=== PATIENT | female | born 1995 | race African-American/Black ===

== ENCOUNTER 2018-02-01 14:57 | Emergency (ER) | payer MEDICAID, OTHER ==
[~2018-02-01] VITALS: Ht 165.1 cm; Wt 66.0 kg
[2018-02-01 18:47] LABS: CLARITY URINE CLEAR (CLEAR); COLOR URINE DARK YELLOW (YELLOW); KETONES URINE NEGATIVE (NEGATIVE); LEUKOCYTE ESTERASE URINE NEGATIVE (NEGATIVE); NITRITE URINE NEGATIVE (NEGATIVE); OCCULT BLOOD URINE NEGATIVE (NEGATIVE); PH URINE 7.5 (4.5-8.0); PROTEIN URINE 2+ (NEGATIVE); SPECIFIC GRAVITY URINE 1.028 (1.005-1.030)
[2018-02-01] MEDS ORDERED: ACETAMINOPHEN 325MG TABLET PO STA (22:28)
[2018-02-01] MEDS ORDERED: SODIUM CHLORIDE 0.9% 1,000 ML IV ONE (22:28)
[2018-02-01] MEDS ORDERED: ONDANSETRON HCL 4MG/2ML VIAL IV ONE (22:30)
[2018-02-01 23:50] LABS: BASOPHILS % 0.3 % (0.0-2.0); EOSINOPHILS % 0.7 % (0.0-5.0); HEMATOCRIT. 35.9 % (36.0-48.0); HEMOGLOBIN. 12.2 g/dL (12.0-16.0); MEAN CORPUSCULAR HEMOGLOBIN 28.5 pg (28.0-32.0); MEAN PLATELET VOLUME 8.8 fl (7.4-10.4); MONOCYTES % 13.4 % (2.0-8.0); NEUTROPHILS % 61.6 % (40.0-76.0); PLATELET 114 x1000/uL (130-400); RED BLOOD CELL COUNT 4.27 mill/uL (4.2-5.4); RED CELL DISTRIBUTION WIDTH 14.8 % (11.6-14.6)
[2018-02-01 23:56] LABS: INR 1.1; PROTHROMBIN TIME 10.7 sec (9.1-11.1)
[2018-02-01 23:59] LABS: CHLORIDE 103 mEq/L (98-107)
[2018-02-02] MEDS ORDERED: ONDANSETRON HCL 4MG/2ML VIAL IV ONE (00:15)
[2018-02-02 02:29] VITALS: BP 123/78
== END 2018-02-02 02:36 | disposition home or self-care (01) ==
LOC: ER 16:23
DX: R10.33 Periumbilical pain (principal); R19.7 Diarrhea, unspecified; M54.5 Low back pain
CPT/HCPCS: 36415; 74176; 80053; 81003; 81025; 83690; 85025; 85610; 96361; 96374; 96376; 99285; J2405; J7030; Z7610

== ENCOUNTER 2020-07-05 12:42 | Emergency (ER) | payer MEDICAID ==
[~2020-07-05] VITALS: Ht 167.6 cm; Wt 77.0 kg
[2020-07-05] MEDS ORDERED: PREN-170 PO (12:54)
[2020-07-05] MEDS ORDERED: LOV40 SQ (12:54)
[2020-07-05 13:46] LABS: BASOPHILS % 0.3 % (0.0-2.0); EOSINOPHILS % 2.5 % (0.0-5.0); HEMATOCRIT. 31.2 % (36.0-48.0); HEMOGLOBIN. 10.6 g/dL (12.0-16.0); MEAN CORPUSCULAR HEMOGLOBIN 29.3 pg (28.0-32.0); MEAN CORPUSCULAR VOLUME 86.1 fL (81.0-99.0); MEAN PLATELET VOLUME 8.2 fl (7.4-10.4); MONOCYTES % 13.4 % (2.0-8.0); NEUTROPHILS % 57.8 % (40.0-76.0); PLATELET 195 x1000/uL (130-400); RED BLOOD CELL COUNT 3.62 mill/uL (4.2-5.4); RED CELL DISTRIBUTION WIDTH 15.5 % (11.6-14.6)
[2020-07-05 13:53] LABS: CHLORIDE 107 mEq/L (98-107)
[2020-07-05 13:54] LABS: INR 0.9; PROTHROMBIN TIME 9.9 sec (9.6-11.0)
[2020-07-05 13:56] LABS: CLARITY URINE CLOUDY (CLEAR); COLOR URINE YELLOW (YELLOW); KETONES URINE NEGATIVE (NEGATIVE); LEUKOCYTE ESTERASE URINE 2+ (NEGATIVE); NITRITE URINE NEGATIVE (NEGATIVE); OCCULT BLOOD URINE NEGATIVE (NEGATIVE); PH URINE 8.5 (4.5-8.0); PROTEIN URINE 1+ (NEGATIVE); SPECIFIC GRAVITY URINE 1.017 (1.005-1.030); UROBILINOGEN URINE 0.2 E.U./dL (0.2-1.0)
[2020-07-05 14:17] LABS: B-HCG QUANTITATIVE 7683 mIU/mL (<3)
[2020-07-05 14:30] VITALS: BP 112/65
== END 2020-07-05 14:30 | disposition home or self-care (01) ==
LOC: ER 12:48
DX: O9A.212 Injury, poisoning and certain other consequences of external causes complicating pregnancy, second trimester (principal); O23.42 Unspecified infection of urinary tract in pregnancy, second trimester; O99.512 Diseases of the respiratory system complicating pregnancy, second trimester; J45.909 Unspecified asthma, uncomplicated; O26.892 Other specified pregnancy related conditions, second trimester; Z79.899 Other long term (current) drug therapy; Z3A.18 18 weeks gestation of pregnancy; W01.0XXA Fall on same level from slipping, tripping and stumbling without subsequent striking against object, initial encounter; Y93.89 Activity, other specified; Y92.89 Other specified places as the place of occurrence of the external cause; Y99.8 Other external cause status
CPT/HCPCS: 36415; 76805; 80053; 81003; 81025; 84702; 85025; 93005; 99284

== ENCOUNTER 2020-10-04 10:41 | Observation (INO) | payer MEDICAID ==
[~2020-10-04] VITALS: Ht 170.2 cm; Wt 82.6 kg
[~2020-10-04 10:41] MED LIST: LOV40 SQ; PREN-170 PO
[2020-10-04] MEDS ORDERED: RHO(D) IMMUNE GLOBULIN 300 MCG/SYR IM ONE (11:00)
== END 2020-10-04 13:00 | disposition home or self-care (01) ==
LOC: 8 EST LDRP 10:41
PROVIDERS: ADMIT Obstetrics & Gynecology; ATTEND Obstetrics & Gynecology
DX: O26.893 Other specified pregnancy related conditions, third trimester (principal); Z67.41 Type O blood, Rh negative; Z3A.35 35 weeks gestation of pregnancy
CPT/HCPCS: 36415; 59025; 86850; 86900; 86901; 90384; 96372; G0378; 99281

== ENCOUNTER 2020-11-29 10:45 | Observation (INO) | payer MEDICAID ==
[~2020-11-29] VITALS: Ht 170.2 cm; Wt 87.1 kg
[2020-11-29] MEDS ORDERED: LACTATED RINGERS 1,000 ML IV SCH (12:00)
[2020-11-29 12:39] LABS: BASOPHILS % 0.3 % (0.0-2.0); EOSINOPHILS % 0.9 % (0.0-5.0); HEMATOCRIT. 23.9 % (36.0-48.0); LYMPHOCYTES % 19.3 % (20.0-50.0); MEAN CORPUSCULAR HEMOGLOBIN 24.8 pg (28.0-32.0); MEAN CORPUSCULAR VOLUME 73.9 fL (81.0-99.0); MEAN PLATELET VOLUME 10.1 fl (7.4-10.4); MONOCYTES % 9.1 % (2.0-8.0); NEUTROPHILS % 70.4 % (40.0-76.0); PLATELET 174 x1000/uL (130-400); RED BLOOD CELL COUNT 3.24 mill/uL (4.2-5.4); RED CELL DISTRIBUTION WIDTH 19.6 % (11.6-14.6)
[2020-11-29 12:42] LABS: CHLORIDE 111 mEq/L (98-107)
[2020-11-29 12:43] LABS: CLARITY URINE CLOUDY (CLEAR); COLOR URINE YELLOW (YELLOW); KETONES URINE TRACE (NEGATIVE); LEUKOCYTE ESTERASE URINE 2+ (NEGATIVE); NITRITE URINE NEGATIVE (NEGATIVE); OCCULT BLOOD URINE NEGATIVE (NEGATIVE); PROTEIN URINE 1+ (NEGATIVE); SPECIFIC GRAVITY URINE 1.018 (1.005-1.030)
== END 2020-11-29 14:43 | disposition home or self-care (01) ==
LOC: 8 EST LDRP 10:45
PROVIDERS: ADMIT Obstetrics & Gynecology; ATTEND Obstetrics & Gynecology
DX: O26.893 Other specified pregnancy related conditions, third trimester (principal); R10.9 Unspecified abdominal pain; R19.7 Diarrhea, unspecified; Z20.822 Contact with and (suspected) exposure to COVID-19; O99.891 Other specified diseases and conditions complicating pregnancy; M54.5 Low back pain; O36.8190 Decreased fetal movements, unspecified trimester, not applicable or unspecified; Z3A.38 38 weeks gestation of pregnancy
CPT/HCPCS: 36415; 59025; 76805; 76818; 80053; 81003; 85025; 87086; 96360; 96361; G0378; U0003; U0005; J7120

== ENCOUNTER 2020-12-01 07:10 | Inpatient (IN) | payer MEDICAID ==
[~2020-12-01] VITALS: Ht 167.6 cm; Wt 90.7 kg
[2020-12-01] MEDS ORDERED: BUTORPHANOL TARTRATE 2 MG/ML VIAL IV PRN (07:30)
[2020-12-01] MEDS ORDERED: METHYLERGONOVINE MALEATE 0.2 MG/ML IM PRN (07:30)
[2020-12-01] MEDS ORDERED: MISOPROSTOL 100MCG TABLET VG PRN (07:30)
[2020-12-01] MEDS ORDERED: NALOXONE HCL 0.4 MG/ML 1ML VIAL IM PRN (07:30)
[2020-12-01] MEDS ORDERED: DEXT 5%/LACTATED RINGERS 1,000 ML IV SCH ×2 (07:30→16:00)
[2020-12-01] MEDS ORDERED: CARBOPROST TROMETHAMINE 250 MCG/ML AMPUL IM PRN (07:30)
[2020-12-01 08:08] LABS: BASOPHILS % 0.2 % (0.0-2.0); EOSINOPHILS % 1.7 % (0.0-5.0); HEMATOCRIT. 25.7 % (36.0-48.0); HEMOGLOBIN. 8.4 g/dL (12.0-16.0); LYMPHOCYTES % 22.1 % (20.0-50.0); MEAN CORPUSCULAR HEMOGLOBIN 24.1 pg (28.0-32.0); MEAN CORPUSCULAR VOLUME 73.6 fL (81.0-99.0); MEAN PLATELET VOLUME 10.3 fl (7.4-10.4); MONOCYTES % 12.2 % (2.0-8.0); NEUTROPHILS % 63.8 % (40.0-76.0); PLATELET 206 x1000/uL (130-400); RED BLOOD CELL COUNT 3.49 mill/uL (4.2-5.4); RED CELL DISTRIBUTION WIDTH 19.4 % (11.6-14.6)
[2020-12-01 08:21] LABS: INR 0.9; PARTIAL THROMBOPLASTIN TIME 30.5 sec (23.4-31.0)
[2020-12-01 08:26] LABS: CLARITY URINE CLOUDY (CLEAR); COLOR URINE YELLOW (YELLOW); KETONES URINE NEGATIVE (NEGATIVE); LEUKOCYTE ESTERASE URINE TRACE (NEGATIVE); NITRITE URINE NEGATIVE (NEGATIVE); OCCULT BLOOD URINE NEGATIVE (NEGATIVE); PH URINE 6.5 (4.5-8.0); PROTEIN URINE 1+ (NEGATIVE); UROBILINOGEN URINE 0.2 E.U./dL (0.2-1.0)
[2020-12-01 09:14] LABS: *AMPHETAMINES SCREEN URINE NEGATIVE (NEGATIVE); *BARBITURATES SCREEN URINE NEGATIVE (NEGATIVE); *BENZODIAZEPINES SCREEN URINE NEGATIVE (NEGATIVE)
[2020-12-01 09:15] LABS: *COCAINE SCREEN URINE NEGATIVE (NEGATIVE); CANNABINOID URINE SCREEN NEGATIVE (NEGATIVE); METHADONE URINE SCREEN NEGATIVE (NEGATIVE); OPIATES URINE SCREEN NEGATIVE (NEGATIVE); PHENCYCLIDINE URINE SCREEN NEGATIVE (NEGATIVE)
[2020-12-01] MEDS: LACTATED RINGERS 1,000 ML IV SCH ×2 (10:46→10:56)
[2020-12-01] MEDS ORDERED: LACTATED RINGERS 1,000 ML IV SCH (12:30)
[2020-12-01 13:12] LABS: HEPATITIS B SURFACE ANTIGEN NEGATIVE
[2020-12-01] MEDS ORDERED: FENTANYL CITRATE/PF 50MCG/ML 2ML VIAL ONE (15:18)
[2020-12-01] MEDS ORDERED: MORPHINE SULFATE/PF 1MG/ML 10ML AMP ONE (15:19)
[2020-12-01] MEDS ORDERED: OXYTOCIN 10 UNITS/ML 1ML ONE (15:59)
[2020-12-01] MEDS ORDERED: LANOLIN OINT 7GM TUBE TOP PRN (16:00)
[2020-12-01] MEDS ORDERED: CEFAZOLIN SODIUM 1000MG/VIAL ONE (16:00)
[2020-12-01] MEDS ORDERED: LABETALOL 5MG/ML SYR 20 MG/4 ML SYRINGE IV PRN (16:00)
[2020-12-01] MEDS ORDERED: HYDROCODONE/ACETAMINOPHEN 5/325MG TABLET PO PRN (16:00)
[2020-12-01] MEDS ORDERED: EPHEDRINE SULFATE 50MG/ML VIAL ONE (16:00)
[2020-12-01] MEDS ORDERED: SODIUM CHLORIDE 0.9% 10ML VIAL ONE (16:00)
[2020-12-01] MEDS ORDERED: BUTORPHANOL TARTRATE 2 MG/ML VIAL IM PRN (16:00)
[2020-12-01] MEDS ORDERED: HEMORRHOIDAL SUPP PR PRN (16:00)
[2020-12-01] MEDS ORDERED: MEPERIDINE HCL/PF 25MG/ML CPJ IV PRN (16:00)
[2020-12-01] MEDS ORDERED: IBUPROFEN 400MG TABLET PO PRN (16:00)
[2020-12-01] MEDS ORDERED: DIPHENHYDRAMINE 50MG/ML VIAL IV PRN (16:00)
[2020-12-01] MEDS ORDERED: ONDANSETRON HCL 4MG/2ML INJ IV PRN (16:00)
[2020-12-01] MEDS ORDERED: RHO(D) IMMUNE GLOBULIN 300 MCG/SYR IM PRN (16:00)
[2020-12-01] MEDS ORDERED: KETOROLAC 30MG/ML VIAL IV PRN (16:00)
[2020-12-01] MEDS ORDERED: HYDROMORPHONE HCL/PF 2MG/ML CPJ IV PRN (16:00)
[2020-12-01] MEDS ORDERED: DEXT 5%/LR + PITOCIN 20UNITS/L 1,000 ML IV SCH (17:00)
[2020-12-01] MEDS: DEXT 5%/LR + PITOCIN 20UNITS/L 1,000 ML IV SCH ×2 (17:07→23:25)
[2020-12-01 18:20] VITALS: BP 118/75
[2020-12-01 20:20] VITALS: BP 108/68
[2020-12-01 21:00] VITALS: BP 114/68
[2020-12-01 23:30] VITALS: BP 124/73
[2020-12-02] MEDS ORDERED: KETOROLAC 30MG/ML VIAL IV PRN (00:30)
[2020-12-02] MEDS ORDERED: ONDANSETRON HCL 4MG/2ML INJ IV PRN (00:30)
[2020-12-02 03:45] VITALS: BP 105/61
[2020-12-02 06:40] LABS: BASOPHILS % 0.3 % (0.0-2.0); EOSINOPHILS % 1.2 % (0.0-5.0); HEMATOCRIT. 24.4 % (36.0-48.0); HEMOGLOBIN. 7.9 g/dL (12.0-16.0); LYMPHOCYTES % 17.8 % (20.0-50.0); MEAN CORPUSCULAR HEMOGLOBIN 24.1 pg (28.0-32.0); MEAN CORPUSCULAR VOLUME 74.8 fL (81.0-99.0); MEAN PLATELET VOLUME 11.2 fl (7.4-10.4); MONOCYTES % 12.3 % (2.0-8.0); NEUTROPHILS % 68.4 % (40.0-76.0); PLATELET 167 x1000/uL (130-400); RED BLOOD CELL COUNT 3.26 mill/uL (4.2-5.4); RED CELL DISTRIBUTION WIDTH 19.5 % (11.6-14.6)
[2020-12-02 08:00] VITALS: BP 118/57
[2020-12-02] MEDS: FERROUS SULFATE 325MG TABLET PO SCH ×2 (08:29→14:57)
[2020-12-02] MEDS: IBUPROFEN 800MG TABLET PO PRN ×3 (08:30→21:09)
[2020-12-02] MEDS: SIMETHICONE 80MG TABLET CHEW PO SCH ×2 (08:30→21:10)
[2020-12-02] MEDS: PRENATAL VIT/FE FUMARATE/FA TABLET PO SCH (14:57)
[2020-12-02 16:24] VITALS: BP 108/63
[2020-12-02 17:48] LABS: CHLORIDE 109 mEq/L (98-107)
[2020-12-02 20:32] LABS: INR 0.9; PARTIAL THROMBOPLASTIN TIME 30.7 sec (23.4-31.0); PROTHROMBIN TIME 9.8 sec (9.6-11.0)
[2020-12-02 20:40] VITALS: BP 128/71
[2020-12-02] MEDS: MAGNESIUM/ALUMINUM HYDROXIDE/SIMETHICONE 30ML UDC PO SCH (21:10)
[2020-12-02] MEDS: ENOXAPARIN 30MG/0.3ML SYR SUBCUT SCH (21:15)
[2020-12-03] MEDS: IBUPROFEN 800MG TABLET PO PRN ×3 (05:35→22:26)
[2020-12-03 05:40] VITALS: BP 111/78
[2020-12-03 08:00] VITALS: BP 113/66
[2020-12-03] MEDS: PRENATAL VIT/FE FUMARATE/FA TABLET PO SCH (08:54)
[2020-12-03] MEDS: MAGNESIUM/ALUMINUM HYDROXIDE/SIMETHICONE 30ML UDC PO SCH ×3 (08:54→21:07)
[2020-12-03] MEDS: SIMETHICONE 80MG TABLET CHEW PO SCH ×3 (08:54→21:07)
[2020-12-03] MEDS: FERROUS SULFATE 325MG TABLET PO SCH ×2 (08:54→13:23)
[2020-12-03] MEDS: ENOXAPARIN 30MG/0.3ML SYR SUBCUT SCH ×2 (08:54→21:08)
[2020-12-03] MEDS ORDERED: BISACODYL 10MG SUPP PR PRN ×2 (13:15→14:30)
[2020-12-03 16:00] VITALS: BP 123/84
[2020-12-03 19:30] VITALS: BP 128/79
[2020-12-04 04:00] VITALS: BP 119/73
[2020-12-04] MEDS ORDERED: FERR325T23 PO (05:16)
[2020-12-04] MEDS ORDERED: IBUP-2030 PO (05:16)
[2020-12-04] MEDS ORDERED: LOV30 SUBCUT (05:16)
[2020-12-04] MEDS: IBUPROFEN 800MG TABLET PO PRN (06:30)
[2020-12-04 07:30] VITALS: BP 126/73
[2020-12-04] MEDS: MAGNESIUM/ALUMINUM HYDROXIDE/SIMETHICONE 30ML UDC PO SCH (08:51)
[2020-12-04] MEDS: FERROUS SULFATE 325MG TABLET PO SCH (08:51)
[2020-12-04] MEDS: PRENATAL VIT/FE FUMARATE/FA TABLET PO SCH (08:51)
[2020-12-04] MEDS: SIMETHICONE 80MG TABLET CHEW PO SCH (08:52)
[2020-12-04] MEDS: ENOXAPARIN 30MG/0.3ML SYR SUBCUT SCH (08:55)
== END 2020-12-04 10:30 | disposition home or self-care (01) | DRG 540 ==
LOC: 8 EST LDRP 07:10 → 8EST 18:23
PROVIDERS: ADMIT Obstetrics & Gynecology; ATTEND Obstetrics & Gynecology
PROC: 10D00Z1 Extraction of Products of Conception, Low, Open Approach (ICD-10-PCS; principal; 2020-12-01)
DX: O32.1XX0 Maternal care for breech presentation, not applicable or unspecified (principal); D64.9 Anemia, unspecified; O26.893 Other specified pregnancy related conditions, third trimester; F32.9 Major depressive disorder, single episode, unspecified; O99.344 Other mental disorders complicating childbirth; O90.81 Anemia of the puerperium; Z37.0 Single live birth; Z3A.39 39 weeks gestation of pregnancy; Z67.41 Type O blood, Rh negative; Z86.711 Personal history of pulmonary embolism
CPT/HCPCS: 36415; 76815; 80048; 80305; 81003; 85025; 86592; 86703; 86762; 86850; 86900; 87340; 88307; J0690; J1200; J1650; J2274; J2590; J3010; J3490; J7120; J7121; A4315

== ENCOUNTER 2020-12-07 04:50 | Emergency (ER) | payer MEDICAID ==
[~2020-12-07] VITALS: Ht 170.2 cm; Wt 91.0 kg
[~2020-12-07 04:50] MED LIST changes: +FERR325T23 PO; +IBUP-2030 PO; +LOV30 SUBCUT; -PREN-170 PO
[2020-12-07 06:38] LABS: BASOPHILS % 0.5 % (0.0-2.0); HEMATOCRIT. 24.2 % (36.0-48.0); HEMOGLOBIN. 7.8 g/dL (12.0-16.0); LYMPHOCYTES % 24.5 % (20.0-50.0); MEAN CORPUSCULAR HEMOGLOBIN 24.3 pg (28.0-32.0); MEAN CORPUSCULAR VOLUME 75.5 fL (81.0-99.0); MEAN PLATELET VOLUME 8.7 fl (7.4-10.4); MONOCYTES % 11.5 % (2.0-8.0); NEUTROPHILS % 61.5 % (40.0-76.0); PLATELET 287 x1000/uL (130-400); RED BLOOD CELL COUNT 3.21 mill/uL (4.2-5.4); RED CELL DISTRIBUTION WIDTH 20.2 % (11.6-14.6)
[2020-12-07 06:42] LABS: CLARITY URINE CLEAR (CLEAR); COLOR URINE YELLOW (YELLOW); KETONES URINE NEGATIVE (NEGATIVE); LEUKOCYTE ESTERASE URINE NEGATIVE (NEGATIVE); NITRITE URINE NEGATIVE (NEGATIVE); OCCULT BLOOD URINE TRACE (NEGATIVE); PROTEIN URINE TRACE (NEGATIVE); SPECIFIC GRAVITY URINE 1.008 (1.005-1.030); UROBILINOGEN URINE 0.2 E.U./dL (0.2-1.0)
[2020-12-07 06:43] LABS: CHLORIDE 109 mEq/L (98-107)
[2020-12-07 06:47] LABS: PROTHROMBIN TIME 10.9 sec (9.6-11.0)
[2020-12-07] MEDS ORDERED: ACETAMINOPHEN 325MG TABLET PO ONE (07:15)
[2020-12-07] MEDS ORDERED: IBUPROFEN 400MG TABLET PO ONE (07:15)
[2020-12-07 07:29] LABS: HCG SCREEN POSITIVE
[2020-12-07] MEDS ORDERED: FURO-152 MT (09:51)
[2020-12-07 10:18] VITALS: BP 168/94
== END 2020-12-07 10:24 | disposition home or self-care (01) ==
LOC: ER 04:50
DX: O14.95 Unspecified pre-eclampsia, complicating the puerperium (principal); R10.30 Lower abdominal pain, unspecified; D50.9 Iron deficiency anemia, unspecified; J45.909 Unspecified asthma, uncomplicated; Z86.711 Personal history of pulmonary embolism; Z98.890 Other specified postprocedural states; Z79.01 Long term (current) use of anticoagulants; Z91.040 Latex allergy status; Z91.018 Allergy to other foods
CPT/HCPCS: 36415; 74177; 80053; 81003; 83880; 84702; 84703; 85025; 93005; 93970; 99285

== ENCOUNTER 2020-12-11 20:55 | Emergency (ER) | payer OTHER, MEDICAID ==
[~2020-12-11] VITALS: Ht 170.2 cm; Wt 81.0 kg
[~2020-12-11 20:55] MED LIST changes: +FURO-152 MT
[2020-12-11] MEDS ORDERED: ACETAMINOPHEN 325MG TABLET PO STA (23:13)
[2020-12-11 23:44] LABS: CHLORIDE 110 mEq/L (98-107)
[2020-12-12 00:19] LABS: BASOPHILS % 0.4 % (0.0-2.0); EOSINOPHILS % 1.5 % (0.0-5.0); HEMATOCRIT. 26.5 % (36.0-48.0); HEMOGLOBIN. 8.6 g/dL (12.0-16.0); LYMPHOCYTES % 30.2 % (20.0-50.0); MEAN CORPUSCULAR HEMOGLOBIN 24.6 pg (28.0-32.0); MEAN CORPUSCULAR VOLUME 75.6 fL (81.0-99.0); MEAN PLATELET VOLUME 9.2 fl (7.4-10.4); NEUTROPHILS % 53.9 % (40.0-76.0); PLATELET 297 x1000/uL (130-400)
[2020-12-12 00:27] LABS: HCG SCREEN NEGATIVE
[2020-12-12] MEDS ORDERED: IOHEXOL-300 100 ML BOTTLE ONE (00:52)
[2020-12-12 01:19] VITALS: BP 140/80
== END 2020-12-12 01:29 | disposition home or self-care (01) ==
LOC: ER 20:55
DX: R10.31 Right lower quadrant pain (principal); Z98.890 Other specified postprocedural states; Z91.018 Allergy to other foods; Z91.040 Latex allergy status
CPT/HCPCS: 36415; 74177; 80053; 83690; 84703; 85025; 99285; Q9967

== ENCOUNTER 2021-11-09 21:00 | Observation (INO) | payer MEDICAID ==
[~2021-11-09] VITALS: Ht 170.2 cm; Wt 88.0 kg
[2021-11-09] MEDS ORDERED: ACETAMINOPHEN 500MG TABLET PO PRN (22:30)
[2021-11-09] MEDS ORDERED: LACTATED RINGERS 1,000 ML IV SCH (22:30)
[2021-11-09 22:59] LABS: CLARITY URINE CLEAR (CLEAR); COLOR URINE YELLOW (YELLOW); KETONES URINE NEGATIVE (NEGATIVE); LEUKOCYTE ESTERASE URINE NEGATIVE (NEGATIVE); NITRITE URINE NEGATIVE (NEGATIVE); OCCULT BLOOD URINE NEGATIVE (NEGATIVE); PROTEIN URINE 1+ (NEGATIVE); SPECIFIC GRAVITY URINE 1.011 (1.005-1.030); UROBILINOGEN URINE 0.2 E.U./dL (0.2-1.0)
[2021-11-10] MEDS ORDERED: PNV1TABL76 PO (01:04)
== END 2021-11-10 01:18 | disposition hospice, home (50) ==
LOC: 8 EST LDRP 21:00
PROVIDERS: ADMIT Obstetrics & Gynecology; ATTEND Obstetrics & Gynecology
DX: O98.513 Other viral diseases complicating pregnancy, third trimester (principal); U07.1 COVID-19; O36.8130 Decreased fetal movements, third trimester, not applicable or unspecified; O26.893 Other specified pregnancy related conditions, third trimester; R10.30 Lower abdominal pain, unspecified; R09.81 Nasal congestion; O99.891 Other specified diseases and conditions complicating pregnancy; M54.9 Dorsalgia, unspecified; Z79.899 Other long term (current) drug therapy; Z3A.36 36 weeks gestation of pregnancy
CPT/HCPCS: 76815; 76818; 81003; 87426; 96360; 96361; 99281; G0378; 59025

== ENCOUNTER 2021-12-24 23:58 | Emergency (ER) | payer OTHER ==
[~2021-12-24] VITALS: Ht 170.2 cm; Wt 85.0 kg
[~2021-12-24 23:58] MED LIST changes: +ENOX40SY27 SQ; -LOV40 SQ; +PNV1TABL76 PO
[2021-12-25 00:06] VITALS: BP 123/78
[2021-12-25 04:24] LABS: BASOPHILS % 0.2 % (0.0-2.0); HEMATOCRIT. 35.5 % (36.0-48.0); HEMOGLOBIN. 11.4 g/dL (12.0-16.0); LYMPHOCYTES % 37.9 % (20.0-50.0); MEAN CORPUSCULAR HEMOGLOBIN 26.4 pg (28.0-32.0); MEAN CORPUSCULAR VOLUME 82.4 fL (81.0-99.0); MEAN PLATELET VOLUME 9.3 fl (7.4-10.4); MONOCYTES % 11.4 % (2.0-8.0); NEUTROPHILS % 48.5 % (40.0-76.0); PLATELET 248 x1000/uL (130-400); RED BLOOD CELL COUNT 4.31 mill/uL (4.2-5.4)
[2021-12-25 04:28] LABS: CHLORIDE 107 mEq/L (98-107)
[2021-12-25 04:36] LABS: HCG SCREEN NEGATIVE
== END 2021-12-25 05:52 | disposition home or self-care (01) ==
LOC: ER 23:58
DX: R53.1 Weakness (principal); M79.10 Myalgia, unspecified site; Z86.711 Personal history of pulmonary embolism; Z98.890 Other specified postprocedural states; Z79.01 Long term (current) use of anticoagulants; Z91.040 Latex allergy status; Z91.018 Allergy to other foods
CPT/HCPCS: 36415; 71045; 72040; 80053; 84484; 84703; 85025; 93005; 99285

== ENCOUNTER 2022-03-16 20:53 | Emergency (ER) | payer MEDICAID, OTHER ==
[~2022-03-16] VITALS: Ht 167.6 cm; Wt 82.0 kg
[2022-03-17] MEDS ORDERED: HYDROCODONE/ACETAMINOPHEN 5/325MG TABLET PO STA (01:09)
[2022-03-17 01:43] LABS: BASOPHILS % 0.5 % (0.0-2.0); EOSINOPHILS % 2.1 % (0.0-5.0); HEMATOCRIT. 34.2 % (36.0-48.0); HEMOGLOBIN. 11.4 g/dL (12.0-16.0); LYMPHOCYTES % 44.7 % (20.0-50.0); MEAN CORPUSCULAR HEMOGLOBIN 26.9 pg (28.0-32.0); MEAN CORPUSCULAR VOLUME 80.8 fL (81.0-99.0); MEAN PLATELET VOLUME 8.4 fl (7.4-10.4); MONOCYTES % 14.5 % (2.0-8.0); NEUTROPHILS % 38.2 % (40.0-76.0); PLATELET 270 x1000/uL (130-400); RED BLOOD CELL COUNT 4.23 mill/uL (4.2-5.4); RED CELL DISTRIBUTION WIDTH 17.2 % (11.6-14.6)
[2022-03-17 01:44] LABS: CHLORIDE 105 mEq/L (98-107)
[2022-03-17 04:08] VITALS: BP 116/71
== END 2022-03-17 06:10 | disposition home or self-care (01) ==
LOC: ER 20:53
DX: M54.2 Cervicalgia (principal); Z98.890 Other specified postprocedural states; Z79.899 Other long term (current) drug therapy
CPT/HCPCS: 36415; 70490; 71045; 80053; 81025; 85025; 93005; 99285

== ENCOUNTER 2022-05-20 19:56 | Emergency (ER) | payer MEDICAID ==
[~2022-05-20] VITALS: Ht 170.2 cm; Wt 81.0 kg
[2022-05-20 23:07] LABS: CLARITY URINE CLEAR (CLEAR); COLOR URINE DARK YELLOW (YELLOW); KETONES URINE NEGATIVE (NEGATIVE); LEUKOCYTE ESTERASE URINE NEGATIVE (NEGATIVE); NITRITE URINE NEGATIVE (NEGATIVE); OCCULT BLOOD URINE TRACE (NEGATIVE); PH URINE 6.5 (4.5-8.0); PROTEIN URINE 1+ (NEGATIVE); SPECIFIC GRAVITY URINE 1.015 (1.005-1.030); UROBILINOGEN URINE 0.2 E.U./dL (0.2-1.0)
[2022-05-21 04:22] LABS: HEMOGLOBIN. 11.2 g/dL (12.0-16.0); MEAN CORPUSCULAR HEMOGLOBIN 26.6 pg (28.0-32.0); MEAN CORPUSCULAR VOLUME 80.3 fL (81.0-99.0); RED BLOOD CELL COUNT 4.23 mill/uL (4.2-5.4); RED CELL DISTRIBUTION WIDTH 16.3 % (11.6-14.6)
[2022-05-21 04:34] LABS: CHLORIDE 105 mEq/L (98-107)
[2022-05-21 04:52] LABS: B-HCG QUANTITATIVE < 1 mIU/mL (<3)
[2022-05-21] MEDS ORDERED: ACETAMINOPHEN 325MG TABLET PO NR (06:15)
[2022-05-21] MEDS ORDERED: CEPH500C2 MT (07:03)
[2022-05-21] MEDS ORDERED: ACET-2708 MT (07:03)
[2022-05-21 07:26] VITALS: BP 124/78
[2022-05-21 08:16] LABS: MEAN PLATELET VOLUME 9.2 fl (7.4-10.4); PLATELET 261 x1000/uL (130-400)
[2022-05-21 10:20] LABS: PLATELET ESTIMATE NORMAL
== END 2022-05-21 07:28 | disposition home or self-care (01) ==
LOC: ER 19:56
DX: N93.8 Other specified abnormal uterine and vaginal bleeding (principal); N83.201 Unspecified ovarian cyst, right side; J45.909 Unspecified asthma, uncomplicated; Z86.711 Personal history of pulmonary embolism; Z98.890 Other specified postprocedural states; Z79.01 Long term (current) use of anticoagulants; Z91.018 Allergy to other foods; Z91.040 Latex allergy status
CPT/HCPCS: 36415; 76830; 76856; 80053; 81003; 84702; 85025; 99284

== ENCOUNTER 2022-08-02 20:43 | Emergency (ER) | payer MEDICAID ==
[~2022-08-02] VITALS: Ht 165.1 cm; Wt 73.0 kg
[~2022-08-02 20:43] MED LIST changes: +ACET-2708 MT; +CEPH500C2 MT
[2022-08-02] MEDS ORDERED: IBUP-2029 MT (23:33)
[2022-08-02] MEDS ORDERED: KETOROLAC 60MG/2ML VIAL IM ONE (23:45)
[2022-08-02] MEDS ORDERED: LIDOCAINE 5% PATCH TOP SCH (23:45)
[2022-08-02 23:54] VITALS: BP 124/91
== END 2022-08-02 23:54 | disposition home or self-care (01) ==
LOC: ER 21:36
DX: M54.2 Cervicalgia (principal); G89.29 Other chronic pain; D25.9 Leiomyoma of uterus, unspecified; N94.6 Dysmenorrhea, unspecified; J45.909 Unspecified asthma, uncomplicated; Z98.890 Other specified postprocedural states; Z79.899 Other long term (current) drug therapy
CPT/HCPCS: 81025; 99282